=== PATIENT | male | born 1955 | race Caucasian/White ===

== ENCOUNTER → 2021-06-16 14:34 | Outpatient (CLI) | payer BC, SELFPAY ==
--- NOTE | ~2021-06-16 | XR_ITS ---
XR chest 2V 06/16/2021 14:48 Indication: Cough Procedure: 2 view chest Comparison: 09/30/2009 Findings: Status post median sternotomy for CABG. Heart size is normal. There is diffuse bilateral in terstitial infiltrates, left greater than right. No significant effusion. No pneumothorax. No acute o sseous abnormality. Impression: 1: Diffuse bilateral interstitial infiltrates which may represent mild edema or pneumonia. Reviewed, dictated and finalized at location B. LITIES CUSTODIAN Impression: 1: Diffuse bilateral interstitial infiltrates which may represent mild edema or pneumonia.
== END ==
PROVIDERS: PCP Family Medicine; Visit Provider Family Medicine
DX: R05.9 Cough, unspecified (principal); R91.8 Other nonspecific abnormal finding of lung field
CPT/HCPCS: 71046

== ENCOUNTER → 2021-09-19 17:51 | Outpatient (CLI) | payer BC, SELFPAY ==
--- NOTE | ~2021-09-19 | XR_ITS ---
EXAMINATION: XR chest 2V DATE: 09/19/2021 18:39 INDICATION: Cough and shortness of breath TECHNIQUE: frontal and lateral views of the chest were obtained. COMPARISON: Chest radiograph dated 06/16/2021 FINDINGS: Persistent coarse reticulonodular opacities in the bilateral mid to lower lung zones. No pleural effu ha or pneumothorax. The cardiomediastinal silhouette is normal. Median sternotomy wires and mediast inal surgical clips are seen, likely from prior coronary artery bypass grafting. Moderate thoracic sp ondylosis. IMPRESSION: 1. Persistent coarse reticulonodular opacities in the bilateral mid and lower lung zones which could represent pneumonia, mild pulmonary edema, more chronic interstitial lung disease or some combination thereof. Reviewed, dictated and finalized at location A. RECEPTIONIST IMPRESSION: 1. Persistent coarse reticulonodular opacities in the bilateral mid and lower l jon zones which could represent pneumonia, mild pulmonary edema, more chronic i nterstitial lung disease or some combination thereof.
== END ==
PROVIDERS: PCP Family Medicine; Visit Provider Family Medicine
DX: R93.89 Abnormal findings on diagnostic imaging of other specified body structures (principal); M47.814 Spondylosis without myelopathy or radiculopathy, thoracic region
CPT/HCPCS: 71046

== ENCOUNTER → 2021-09-27 11:41 | Outpatient (CLI) | payer BC, SELFPAY ==
--- NOTE | ~2021-09-27 | CT_ITS ---
EXAMINATION:CT chest high resolution wo co DATE: 09/27/2021 11:55 INDICATION: Abnormal findings on diagnostic imaging. Abnormal chest radiograph. TECHNIQUE: Computed tomography (CT) of the chest was performed without intravenous contrast. Automate d exposure control and iterative reconstruction technique were employed. The dose-length product (DLP ) was 695.28 mGy-cm. COMPARISON: Chest 2 views 09/19/2021 FINDINGS: There is widespread septal thickening associated with mild groundglass opacities in the chuy gs with a peripheral and lower lung predominance. There are areas of peripheral honeycombing in the u pper lobes and lower lobes. There is mild bronchiectasis in the lower lobes. No pleural effusion. The heart size is normal. There are coronary artery calcifications. There are changes of coronary artery bypass grafting. No pericardial effusion. There is wall thickening of the distal esophagus. There is a gallstone in the gallbladder, which is normal in size. There is a 2.9 cm cyst in left kidney. Ther e is mild bilateral gynecomastia. There is moderate thoracic spondylosis. There are bridging endplate osteophytes at multiple levels in the spine, consistent with diffuse idiopathic skeletal hyperostosi s (DISH). IMPRESSION: 1. Chronic interstitial lung disease in a pattern of usual interstitial pneumonia (UIP). 2. Wall thickening of the distal esophagus, which may be esophagitis. Consider endoscopy to exclude m alignancy. Reviewed, dictated and finalized at location A. IMPRESSION: 1. Chronic interstitial lung disease in a pattern of usual interstitial pneumon ia (UIP). 2. Wall thickening of the distal esophagus, which may be esophagitis. Consider endoscopy to exclude malignancy.
== END ==
PROVIDERS: Visit Provider Family Medicine
DX: R93.89 Abnormal findings on diagnostic imaging of other specified body structures (principal); I25.10 Atherosclerotic heart disease of native coronary artery without angina pectoris; J84.9 Interstitial pulmonary disease, unspecified; M47.814 Spondylosis without myelopathy or radiculopathy, thoracic region; N28.1 Cyst of kidney, acquired
CPT/HCPCS: 71250

== ENCOUNTER 2021-12-26 07:47 | Outpatient (CLI) | payer BC, SELFPAY ==
--- NOTE | 2021-12-26 12:39 | WPDSIXMINUTE ---
Six Minute Walk Procedure Procedure Performed Pulmonary Stress Test (6 min walk) Six Minute Walk Six Minute Walk: This is a 6 minute walk test. The test was performed and interpreted in accordance with the 2014 ERS/ATS task force guidelines. Findings: The patient's resting room air oxygen saturation measured by pulse oximetry was 97% and heart rate was 74 bpm. Patient ambulated for 396 meters and oxygen saturation remained 91 to 97%. Heart rate at the end of the study was 99 bpm. The patient did not qualify for supplemental oxygen at rest or with ambulation. There are no prior studies for comparison.
--- NOTE | 2021-12-26 12:40 | WPDPFTINT ---
PFT Procedure Performed PFT Procedure Performed Spirometry with Pre/Post Bronchodilator Plethysmography (Lung Vol) Diffusing Cap (DLCO) Flow Vol Loop PFT Interpretation This is a pulmonary function test with pre and post-bronchodilator spirometry, plethysmography and diffusing capacity. The test was performed and results interpreted in accordance with the 2019 and 2005 ATS/ERS Task Force guidelines respectively using the Global Lung Function Initiative-2012 reference equations. Patient demonstrated good effort and cooperation. Reproducibility criteria were met. The quality of the pre bronchodilator spirometry maneuver was Grade A and post bronchodilator spirometry maneuver was Grade A. Findings: Spirometry: The contour the inspiratory and expiratory flow tracing are normal. The pre bronchodilator FVC is 2.97 L, 69% predicted. The pre bronchodilator FEV1 is 2.41 L, 73% predicted. The pre bronchodilator FEV1: FVC ratio was 81%. The post bronchodilator FVC is 2.88 L, representing a 3% decrease. The post bronchodilator FEV1 is 2.37 L, representing a 2% decrease. The post bronchodilator FEV1: FVC ratio was 82%. Plethysmography: The total lung capacity is 3.87 L, 55% predicted. The functional residual capacity is 1.25 L, 34% predicted. The residual volume is 0.86 L, 36% predicted. Diffusion capacity: The diffusing capacity unadjusted for hemoglobin and carboxyhemoglobin is 19.7, 74% predicted. The diffusing capacity adjusted for alveolar volume is 4.39, 110% predicted. Impression: There is a mild restrictive ventilatory abnormality. The spirometry is normal without evidence of an obstructive abnormality. There is no significant improvement after inhaling a single dose of albuterol. The diffusing capacity is normal. There are no prior studies for comparison
== END 2021-12-26 07:48 | disposition home or self-care (01) ==
PROVIDERS: PCP Family Medicine; Visit Provider Internal Medicine Pulmonary Disease
DX: R06.02 Shortness of breath (principal); J84.9 Interstitial pulmonary disease, unspecified
CPT/HCPCS: 94060; 94618; 94726; 94729

== ENCOUNTER 2022-05-24 08:56 | Outpatient (CLI) | payer BC, SELFPAY ==
--- NOTE | 2022-05-24 13:45 | WPDPFTINT ---
PFT Procedure Performed PFT Procedure Performed Plethysmography (Lung Vol) Diffusing Cap (DLCO) Flow Vol Loop Spirometry w/o Bronchodil PFT Interpretation Lung volumes were measured with the body plethysmography method. The diminished [id number] lung volumes are indicative of restrictive respiratory disease. Spirometry showed normal expiratory flow rates and a normal FEV1 to FVC ratio of 80%. No post bronchodilator study carried out. Lung diffusion capacity is within normal range at 81% predicted. The flow volume loop is consistent with restrictive respiratory disease. In comparison to previous study in December of 2021 the forced vital capacity is now greater by approximately 0.25 L. Impression: Mild restrictive respiratory disease. Lung diffusion capacity within normal range.
--- NOTE | 2022-05-24 13:52 | WPDSIXMINUTE ---
Six Minute Walk Procedure Procedure Performed Pulmonary Stress Test (6 min walk) Six Minute Walk Six Minute Walk: This 6 minute walk test was carried out with the patient breathing ambient air. The pre walk oxyhemoglobin saturation was 95%. The patient walked over 304 m with no stops during testing. During the walk the oxyhemoglobin saturation remained 93% or higher. Impression: No evidence of oxyhemoglobin desaturation on this testing.
== END 2022-05-24 08:57 | disposition home or self-care (01) ==
LOC: ANHPFT 09:09
PROVIDERS: PCP Family Medicine; Referring Provider Family Medicine; Visit Provider Internal Medicine Pulmonary Disease
DX: J84.112 Idiopathic pulmonary fibrosis (principal); J98.8 Other specified respiratory disorders
CPT/HCPCS: 94375; 94618; 94726; 94729

== ENCOUNTER 2022-11-14 11:52 | Outpatient (CLI) | payer BC, SELFPAY | END 2022-11-14 11:53 | disposition home or self-care (01) | LOC: CHSLAB 11:54 | PROVIDERS: PCP Family Medicine; Visit Provider Specialist | DX: L57.0 Actinic keratosis (principal) | CPT/HCPCS: 88305 ==